=== PATIENT | male | born 1950 | race African-American/Black ===

== ENCOUNTER 2023-12-17 08:36 | Inpatient (IN) ==
[2023-12-17] MEDS: LR 1,000 ML IV 1,000 ML IV SCH (11:09)
--- NOTE | 2023-12-17 11:16 | DR.H&P ---
H&P History & Physical for Day of: H&P Date: 12/17/23 Chief Complaint Chief Complaint: Rest pain right leg, abnormal right leg CTA Allergies Allergies Allergy/AdvReac Type Severity Reaction Status Date / Time No Known Drug Allergies Allergy Unknown Verified 05/16/22 14:00 History of Present Illness History of Present Illness: 73 year old male who had presented with rest pain of the right leg. History of Eliquis use for presumed DVT and doppler studies showed monophasic flow on the right leg. CT angiogram shows minimal disease of the left leg with a right popliteal artety long segment occlusion and 3 vessel runoff. Patient with significant rest pain and will be admitted for therapeutic Lovenox and arterial intervention right leg . Past Medical History Past Medical History: COPD, Dyslipidemia and Hypertension Additional Medical History: BPH Past Surgical History Surgical History: Other (wrist surgery, colonoscopy) Family History Family Medical History: Diabetes Mellitus and Hypertension Social History Does patient currently use any type of tobacco product: Yes Have you used tobacco products in the last 12 months: Yes Type of Tobacco Use: Cigarettes How many years tobacco product used: 60 Packs per day or dips/chews per day: 1 pack/day Medications Home Medications: Home Medications Medication Instructions Recorded Confirmed Type apixaban 5 mg tablet (Eliquis) 5 mg PO BID 12/17/23 12/17/23 History atenolol 50 mg-chlorthalidone 25 1 tab PO QDAY 12/17/23 12/17/23 History mg tablet fenofibrate 160 mg tablet 160 mg PO QDAY 12/17/23 12/17/23 History hydrochlorothiazide 25 mg tablet 25 mg PO DAILY 12/17/23 12/17/23 History tamsulosin 0.4 mg capsule 0.4 mg PO QDAY 12/17/23 12/17/23 History Review of Systems Constitutional: See HPI Eyes: No Symptoms Reported ENT: No Symptoms Reported Respiratory: No Symptoms Reported Cardiovascular: No Symptoms Reported Gastrointestinal: No Symptoms Reported Genitourinary: No Symptoms Reported Musculoskeletal: No Symptoms Reported Skin: No Symptoms Reported Neurological: No Symptoms Reported Oriented: Normal, Time, Person and Place Eyes: Normal Ear: Normal Nose: Normal Throat: Normal Respiratory: Clear Throughout Cardiovascular: Normal and Other (Femoral pulses palpable b/l . absent palpable pulses both ankles ) : Other (On Flomax, and no current difficulty urinating ) Auscultation: Bowel Sounds: Normal Palpation: Normal Tenderness: Normal Skin: Normal Musculoskeletal: Normal Psychiatric: Normal Mood Description: Calm Affect: Normal Speech Pattern: Clear and Appropriate Assessment/Plan (1) Atherosclerosis of [place] arteries of extremities with rest pain, right leg: Status: Acute Plan: admit, therapeutic Lovenox plan our arterial invention right leg tomorrow due to severe rest pain (2) Benign prostatic hyperplasia: Status: None Plan: po Flomax (3) Chronic obstructive pulmonary disease: Status: None Plan: home medications (4) Hyperlipidemia: Status: None Plan: home medications (5) Hypertension: Status: None Plan: home medications
[2023-12-17 11:28] LABS: BASOPHILS # (AUTO) 0.1 X10^3/uL (0.0-0.1); BASOPHILS % (AUTO) 0.8 % (0.2-1.0); EOSINOPHILS # (AUTO) 0.4 x10^3/uL (0.0-0.2); EOSINOPHILS % (AUTO) 4.5 % (0.9-2.9); HEMATOCRIT 40.6 % (42.0-54.0); HEMOGLOBIN 13.8 g/dL (13.5-18.0); MEAN CORPUSCULAR HEMOGLOBIN 32.6 pg (27.0-34.0); MEAN CORPUSCULAR HGB CONC 34.1 g/dL (33.0-35.0); MEAN CORPUSCULAR VOLUME 95.6 fL (80.0-100.0); MEAN PLATELET VOLUME 8.9 fL (7.4-11.0); MONOCYTES # (AUTO) 0.8 x10^3/uL (0.3-0.8); MONOCYTES % (AUTO) 9.9 % (0.0-13.0); NEUTROPHILS # (AUTO) 5.3 x10^3/uL (2.2-4.8); NEUTROPHILS % (AUTO) 61.8 % (42.0-75.0); PLATELET COUNT 145 X10^3/uL (150.0-450.0); RED BLOOD COUNT 4.24 X10^6/uL (4.7-6.0); RED CELL DISTRIBUTION WIDTH 15.3 % (11.6-16.5); WHITE BLOOD COUNT 8.5 X10^3/uL (3.6-10.0)
[2023-12-17 11:48] LABS: ALANINE AMINOTRANSFERASE 27 Units/L (12-78); ALBUMIN 3.2 g/dL (3.4-5.0); ALKALINE PHOSPHATASE 51 Units/L (46-116); ASPARTATE AMINO TRANSFERASE 21 Units/L (15-37); BLOOD UREA NITROGEN 20 mg/dL (7-18); CALCIUM 8.8 mg/dL (8.5-10.1); CARBON DIOXIDE 25.8 mmol/L (21-32); CHLORIDE 106 mmol/L (98-107); COR CA(FOR HYPOALB) 9.4 mg/dL (8.5-10.1); CREATININE 1.28 mg/dL (0.70-1.30); GLUCOSE 104 mg/dL (65-99); POTASSIUM 4.2 mmol/L (3.5-5.1); SODIUM 141 mmol/L (136-145); TOTAL PROTEIN 7.6 g/dL (6.4-8.2); eGFR NON BLACK RACES 58 (>60)
[2023-12-17] MEDS: CRESTOR TAB 10 MG PO SCH (21:06)
[2023-12-17] MEDS: LOVENOX INJ 80 MG SYR SC SCH (21:12)
[2023-12-17] MEDS ORDERED: HIBICLENS WASH ONE (22:24)
[2023-12-18] MEDS: HIBICLENS WASH EXT ONE (04:53)
[2023-12-18] MEDS: TENORMIN PO SCH (09:20)
[2023-12-18] MEDS: CHLORTHALIDONE PO SCH (09:20)
[2023-12-18] MEDS: HYDROCHLOROTHIAZIDE 25 MG TAB PO SCH (09:20)
[2023-12-18] MEDS: TRICOR TAB 160 MG PO SCH (09:25)
[2023-12-18] MEDS: FLOMAX PO SCH (09:25)
--- NOTE | 2023-12-18 10:07 | EKG ---
Test Reason : Pre-op Blood Pressure : */* mmHG Vent. Rate : 68 BPM Atrial Rate : 68 BPM P-R Int : 194 ms QRS Dur : 90 ms QT Int : 392 ms P-R-T Axes : 60 32 33 degrees QTc Int : 416 ms Normal sinus rhythm Normal ECG No previous ECGs available Confirmed by Bossman Rodriguez MD ([id number]) on 12/18/2023 1:16:53 PM Referred By: Confirmed By: Bossman Rodriguez MD
--- NOTE | 2023-12-18 10:32 | RAD ---
EXAM: CHEST, 1 VIEW HISTORY: PRE OP VASCULAR PROCEDURE; COMPARISON: None. TECHNIQUE: Chest x-ray single view FINDINGS: Heart size and mediastinal contours are normal. Lungs are clear as are the pleural spaces. No free ai r or pneumothorax. No acute bony abnormality. Multilevel bridging osteophytes of the spine are typical of diffuse idiopathic skeletal hyperostosis. IMPRESSION: No acute radiographic abnormalities of the chest THIS IS AN ELECTRONICALLY VERIFIED FINAL REPORT 12/18/2023 10:17 AM - Electronically signed by Jovan Curry MD
[2023-12-18] MEDS: LR 1,000 ML IV 1,000 ML IV ONE (12:33)
[2023-12-18] MEDS: NS 100 ML IV 100 ML ONE (13:01)
[2023-12-18] MEDS: ANCEF VIAL 1 GRAM ONE (13:01)
[2023-12-18] MEDS: DIPRIVAN VIAL 20 ML ONE ×3 (13:14→15:42)
[2023-12-18] MEDS: FENTANYL VIAL INJ 100 mcg ONE (13:14)
[2023-12-18] MEDS: VERSED ONE (13:14)
[2023-12-18] MEDS: ZOFRAN INJ 4 MG VIAL ONE (13:28)
[2023-12-18] MEDS: HEPARIN SODIUM IN D5W 75,000 UNITS/1,500 ML BAG ONE (13:31)
[2023-12-18] MEDS: MARCAINE 0.5% ONE (13:31)
[2023-12-18] MEDS: VISIPAQUE 50 ML ONE (13:31)
[2023-12-18] MEDS: VISIPAQUE 100 ML ONE (13:31)
[2023-12-18] MEDS: HEPARIN SODIUM INJ 5000 UNITS ONE (13:32)
[2023-12-18] MEDS: PROTAMINE SULFATE 50 MG VIAL ONE (13:48)
[2023-12-18] MEDS: NS 500 ML IV 500 ML IV ONE (15:12)
--- NOTE | 2023-12-18 16:13 | OR.IMMED ---
IMMEDIATE POST-OP NOTE Immediate Post-Op Note Date of surgery/procedure: 12/18/23 Pre-Op Diagnosis: critical ischemia right leg Post-Op Diagnosis: same Procedure: aortogram , arteriogram right leg, athertectomy and drug stenting of the right popliteal artery and right tibial peroneal trunk , Ivus right popliteal , tib peroneal trunk and posterior tibial arteries Description of Procedure: dictated Surgeon/Stenotypist: Sarabjit Findings: completely occluded right popliteal artery at the knee joint, severe stenosis right tibial peroneal trunk, only runoff to the right foot is the posterior tibial artery. Estimated Blood Loss: 200 cc Complications: none Progress Notes: return to floor, stop Lovenox and begin po Xarelto and aspirin , d/c home tomorrow
[2023-12-18] MEDS: XARELTO PO SCH (20:05)
[2023-12-18] MEDS: PERCOCET TAB 5/325 MG PO PRN (20:06)
--- NOTE | 2023-12-19 11:00 | W.DIS.FURT ---
Summary of Discharge Discharge Summary of Date Date of Exam: 12/19/23 Admission Date Date of Admission: 12/17/23 Admission Diagnosis Hospital Course: This is a 73 year old male with presented with rest pain at the right leg with monophasic waveforms and CT Angiogram showing complete occlusion of the right popliteal artery. He was admitted on December and was placed on subcutaneous therapeutic Lovenox .The following day ,December 17 he underwent aortogram and arteriogram of the the right leg showing completed occlusion of the distal right popliteal artery with severe disease of the tibial peroneal trunk and the proximal right posterior tibial artery The right anterior tibial artery is occluded distally . Posterior tibial artery was really the only vessel going to the foot. He underwent atherectomy and stenting of the tibial peroneal trunk through the popliteal artery with a drug coated stent . He has done well. He will be discharged home at this time on his usual medications plus aspirin 81 milligrams daily and Eliquis 5 mg PO BID. He will follow up with me in 1 week. Vital Signs: Vital Signs (72 hours) 12/17/23 11:14 12/17/23 10:57 12/17/23 12:00 Temperature 97.3 F L 97.2 F L Pulse Rate Pulse Rate [Brachial] 65 69 Respiratory Rate 18 17 Blood Pressure Blood Pressure [Left Arm] 119/56 Blood Pressure [Right Arm] 115/55 O2 Sat by Pulse Oximetry 96 97 Oxygen Delivery Method Room Air Room Air Room Air 12/17/23 16:00 12/17/23 19:28 12/17/23 19:00 Temperature 97.9 F 98.1 F Pulse Rate Pulse Rate [Brachial] 83 77 Respiratory Rate 18 20 Blood Pressure Blood Pressure [Left Arm] Blood Pressure [Right Arm] 138/65 119/56 O2 Sat by Pulse Oximetry 97 96 Oxygen Delivery Method Room Air Room Air Room Air 12/17/23 23:41 12/18/23 03:59 12/18/23 09:23 Temperature 98.2 F 98.0 F Pulse Rate Pulse Rate [Brachial] 79 82 Respiratory Rate 20 20 Blood Pressure Blood Pressure [Left Arm] Blood Pressure [Right Arm] 138/63 123/56 O2 Sat by Pulse Oximetry 98 96 Oxygen Delivery Method Room Air Room Air Room Air 12/18/23 08:00 12/18/23 12:35 12/18/23 16:05 Temperature 98.1 F 97.8 F Pulse Rate 65 Pulse Rate [Brachial] 80 64 Respiratory Rate 18 20 18 Blood Pressure 122/55 Blood Pressure [Left Arm] Blood Pressure [Right Arm] 111/58 123/55 O2 Sat by Pulse Oximetry 96 97 96 Oxygen Delivery Method Room Air Room Air 12/18/23 16:20 12/18/23 16:35 12/18/23 16:50 Temperature 97.8 F 97.9 F 97.8 F Pulse Rate Pulse Rate [Brachial] 64 59 L 56 L Respiratory Rate 16 16 16 Blood Pressure Blood Pressure [Left Arm] Blood Pressure [Right Arm] 123/59 115/59 98/50 O2 Sat by Pulse Oximetry 99 100 98 Oxygen Delivery Method 12/18/23 17:05 12/18/23 18:05 12/18/23 19:53 Temperature 97.8 F 97.5 F L 98.1 F Pulse Rate Pulse Rate [Brachial] 53 L 67 75 Respiratory Rate 17 18 19 Blood Pressure Blood Pressure [Left Arm] Blood Pressure [Right Arm] 115/58 122/61 116/63 O2 Sat by Pulse Oximetry 99 99 98 Oxygen Delivery Method Room Air 12/18/23 20:06 12/18/23 19:00 12/18/23 21:06 Temperature Pulse Rate Pulse Rate [Brachial] Respiratory Rate 18 18 Blood Pressure Blood Pressure [Left Arm] Blood Pressure [Right Arm] O2 Sat by Pulse Oximetry Oxygen Delivery Method Room Air 12/18/23 19:05 12/18/23 20:05 12/18/23 21:05 Temperature 98.1 F 98.1 F 98.2 F Pulse Rate Pulse Rate [Brachial] 68 71 69 Respiratory Rate 18 18 18 Blood Pressure Blood Pressure [Left Arm] Blood Pressure [Right Arm] 116/55 116/63 132/65 O2 Sat by Pulse Oximetry 100 99 99 Oxygen Delivery Method Room Air 12/18/23 23:55 12/19/23 04:00 12/19/23 07:00 Temperature 97.6 F 97.8 F Pulse Rate Pulse Rate [Brachial] 63 75 Respiratory Rate 20 20 Blood Pressure Blood Pressure [Left Arm] Blood Pressure [Right Arm] 98/50 131/60 O2 Sat by Pulse Oximetry 99 100 Oxygen Delivery Method Room Air Room Air Room Air 12/19/23 08:00 Temperature 98.9 F Pulse Rate Pulse Rate [Brachial] 85 Respiratory Rate 20 Blood Pressure Blood Pressure [Left Arm] Blood Pressure [Right Arm] 128/59 O2 Sat by Pulse Oximetry 97 Oxygen Delivery Method Room Air Labs: Laboratory Last Values WBC 8.5 X10^3/uL (3.6-10.0) 12/17/23 11:18 RBC 4.24 X10^6/uL (4.7-6.0) L 12/17/23 11:18 Hgb 13.8 g/dL (13.5-18.0) 12/17/23 11:18 Hct 40.6 % (42.0-54.0) L 12/17/23 11:18 MCV 95.6 fL (80.0-100.0) 12/17/23 11:18 MCH 32.6 pg (27.0-34.0) 12/17/23 11:18 MCHC 34.1 g/dL (33.0-35.0) 12/17/23 11:18 RDW 15.3 % (11.6-16.5) 12/17/23 11:18 Plt Count 145 X10^3/uL (150.0-450.0) L 12/17/23 11:18 MPV 8.9 fL (7.4-11.0) 12/17/23 11:18 Neut % (Auto) 61.8 % (42.0-75.0) 12/17/23 11:18 Lymph % (Auto) 23.0 % (21.0-51.0) 12/17/23 11:18 [place] % (Auto) 9.9 % (0.0-13.0) 12/17/23 11:18 Eos % (Auto) 4.5 % (0.9-2.9) H 12/17/23 11:18 Baso % (Auto) 0.8 % (0.2-1.0) 12/17/23 11:18 Neut # (Auto) 5.3 x10^3/uL (2.2-4.8) H 12/17/23 11:18 Lymph # (Auto) 2.0 X10^3/uL (1.3-2.9) 12/17/23 11:18 [place] # (Auto) 0.8 x10^3/uL (0.3-0.8) 12/17/23 11:18 Eos # (Auto) 0.4 x10^3/uL (0.0-0.2) H 12/17/23 11:18 Baso # (Auto) 0.1 X10^3/uL (0.0-0.1) 12/17/23 11:18 Absolute Nucleated RBC 0.0 /100WBC 12/17/23 11:18 Sodium 141 mmol/L (136-145) 12/17/23 11:18 Corrected Sodium TNP 12/17/23 11:18 Potassium 4.2 mmol/L (3.5-5.1) 12/17/23 11:18 Chloride 106 mmol/L (98-107) 12/17/23 11:18 Carbon Dioxide 25.8 mmol/L (21-32) 12/17/23 11:18 BUN 20 mg/dL (7-18) H 12/17/23 11:18 Creatinine 1.28 mg/dL (0.70-1.30) 12/17/23 11:18 Est GFR (MDRD) Af Amer > 60 (>60) 12/17/23 11:18 Est GFR (MDRD) Non-Af 58 (>60) L 12/17/23 11:18 Glucose 104 mg/dL (65-99) H 12/17/23 11:18 Calcium 8.8 mg/dL (8.5-10.1) 12/17/23 11:18 Corrected Calcium 9.4 mg/dL (8.5-10.1) 12/17/23 11:18 Total Bilirubin 0.30 mg/dL (0.2-1.0) 12/17/23 11:18 AST 21 Units/L (15-37) 12/17/23 11:18 ALT 27 Units/L (12-78) 12/17/23 11:18 Alkaline Phosphatase 51 Units/L (46-116) 12/17/23 11:18 Total Protein 7.6 g/dL (6.4-8.2) 12/17/23 11:18 Albumin 3.2 g/dL (3.4-5.0) L 12/17/23 11:18 Globulin 4.4 g/dL (2.5-4.5) 12/17/23 11:18 Albumin/Globulin Ratio 0.7 Ratio (1.1-2.1) L 12/17/23 11:18 Reason For Visit: CRITICAL ISCHEMIA RIGHT LEG Discharge Date Discharge Date: 12/19/23 Discharge Diagnosis All Active Problems (Updated 12/17/23 @ 11:14 by Ron Whipple) Atherosclerosis of [place] arteries of extremities with rest pain, right leg (Acute) Plan of Treatment: Continue with present treatment and follow up plan. Pt is to keep follow up appointment as instructed and take medications as ordered. Discharge Medications Discharge Medications: No Known Drug Allergies Allergy (Unknown, Verified 05/16/22 14:00) CONTINUE taking the following medications apixaban 5 mg tablet (Eliquis) 5 mg PO BID 12/17/23 [History] atenolol 50 mg-chlorthalidone 25 mg tablet 1 tab PO QDAY 12/17/23 [History] fenofibrate 160 mg tablet 160 mg PO QDAY 12/17/23 [History] hydrochlorothiazide 25 mg tablet 25 mg PO DAILY 12/17/23 [History] tamsulosin 0.4 mg capsule 0.4 mg PO QDAY 12/17/23 [History] Discharge Disposition Assessment: see hospital course Discharge Plan Discharge Plan Hospital Course: This is a 73 year old male with presented with rest pain at the right leg with monophasic waveforms and CT Angiogram showing complete occlusion of the right popliteal artery. He was admitted on December the and was placed on subcutaneous therapeutic Lovenox .The following day ,December 17 he underwent aortogram and arteriogram of the the right leg showing completed occlusion of the distal right popliteal artery with severe disease of the tibial peroneal trunk and the proximal right posterior tibial artery The right anterior tibial artery is occluded distally . Posterior tibial artery was really the only vessel going to the foot. He underwent atherectomy and stenting of the tibial peroneal trunk through the popliteal artery with a drug coated stent . He has done well. He will be discharged home at this time on his usual medications plus aspirin 81 milligrams daily and Eliquis 5 mg PO BID. He will follow up with me in 1 week. Patient Disposition: HOME, SELF-CARE Condition: Stable Health Concerns: Post Hospitalization: new medications and changes needed to prevent readmission or further decline. Pt educated and given instructions on all concerns. Plan of Treatment: Continue with present treatment and follow up plan. Pt is to keep follow up appointment as instructed and take medications as ordered. Assessment: see hospital course Prescription drug monitoring program results: PDMP reviewed and no concerns identified Prescriptions: New aspirin 81 mg tablet,chewable 81 mg PO QDAY Qty: 120 0RF Continued atorvastatin 20 mg tablet 20 mg PO QDAY Qty: 30 2RF atenolol-chlorthalidone 50-25 mg tablet 1 tab PO QDAY tamsulosin 0.4 mg capsule 0.4 mg PO QDAY fenofibrate 160 mg tablet 160 mg PO QDAY Eliquis 5 mg tablet 5 mg PO BID hydrochlorothiazide 25 mg tablet 25 mg PO DAILY Follow ups/Referrals Follow ups/Referrals: Ron Whipple [Primary Care Provider] - 1 WEEK Instructions Instructions: Endovascular Therapy for Peripheral Vascular Disease, Care After Stand Alone Forms: Excuse From Work or School, Post Hospital Follow Up Care
[2023-12-19 12:03] VITALS: BP 131/65; PULSE 81; RESP 18; TEMP 97.5; O2SAT 99
[2023-12-19] MEDS ORDERED: KETAMINE HCL ONE (13:14)
--- NOTE | 2023-12-23 23:45 | DR.OPNOTE ---
OP NOTE Pre-Op Diagnosis: critical ischemia right leg Post-Op Diagnosis: same Procedure Date Date Of Procedure: 12/18/23 Procedure: PROCEDURE: DIAGNOSTIC AORTOGRAM, DIAGNOSTIC ARTERIOGRAM RIGHT LEG , IVUS ARTERIES RIGHT LEG, ATHERECTOMY AND BALLOON ANGIOPLASTY RIGHT POSTERIOR TIBIAL ARTERY, ATHERECTOMY AND DRUG COATED BALLOON ANGIOPLASTY RIGHT TIBIAL PERONEAL TRUNK, ATHERECTOMY AND DRUG COATED STENT PLACEMENT RIGHT POPLITEAL ARTERY. NARRATIVE : The patient was taken to the operative suite and placed in the supine position. The left groin and entire right leg were prepped and draped in sterile fashion. The patient was given intravenous sedation supervised by myself. Time out for the procedure obtained. Ultrasound used to identify the left femoral artery and the skin overlying it infiltrated with 0.5% Marcaine. Ultrasound then used to guide puncture of the left femoral artery and a 0.012 inch guide wire was placed. Incision made over the guide wire at the skin edge with a # 11 knife blade and a micro sheath placed over the guide wire into the left femoral artery The small guidewire exchanged for a 0.035 inch Advantage glide wire and the micro sheath exchanged for a 5 Fr vascular sheath. Patient given 5000 units of intravenous heparin. Omni catheter was placed over the guide wire into the aorta and diagnostic aortogram carried out with the power injector showing patent aorta and iliac arteries. Omni catheter was used to steer the guide wire down the right common iliac artery to the distal right external iliac artery . Omni catheter was exchanged for a [place] catheter and sequential arteriograms carried out of the right lower extremity showing complete occlusion of the distal right popliteal artery, possible disease of the right tibial peroneal trunk, and the right posterior tibial artery was the only runoff to the right foot. The 5 Fr sheath in the left groin then exchanged for a 7 Fr destination sheath which was parked in the proximal right popliteal artery. [place] catheter and the guide wire were used to traverse the arteries of the right leg ultimately ending in the right posterior tibial artery . This was selective catheterization. 0.035 inch wire removed and exchanged for a 0.014 inch wire. Over this wire we placed the Jet Stream atherectomy device and performed atherectomy of the proximal right posterior tibial artery, disease of the right tibial peroneal trunk and the right popliteal artery. At this point we performed angioplasty of the right posterior tibial artery with Constantia 3mmx 150 mm. The right tibial peroneal trunk was dialted with a [employer] 4mm x 80 mm ballooon . Intravascular ultrasound performed of the right popliteal artery and the right tibial peroneal trunk. We then placed an Sandra 5mmx 150 mm drug coated stent over the right popliteal artery and right tibial peroneal trunk. The portion of the stent in the tibial peroneal trunk dilated a 4mmx 80 mm balloon and the proximal portion also dilated with a 5mmx 60mm balloon. Post procedure arteriogram and IVUS both showed excvellent results . All wires and devices removed. The 7 Fr sheath was pulled back into the aorta and a 0.035 inch wire placed. The Catapult sheath exchanged for an Angioseal device used to close the puncture of the left femoral artery.Dressing applied to the left groin. The patient taken to same day surgery in good condition. Type of Anesthesia: Local (0.5% Marcaine ) Findings: severe disease right proximal posterior tibial artery, devere diease right tibial peroneal trunk, complete occlusion right popliteal artery Type of Fluids Used:: Lactated Ringers Total Amount of Fluid Infused:: 900 cc Urine output: 700cc EBL: 200 cc Hardware: Sandra 6mmx 150 mm drug coated stent Complications:: none Needle/Sponge Count:: correct Disposition/Condition: Pt. tolerated procedure without difficulty. Taken to [facility] in stable condition.
--- NOTE | 2023-12-24 00:23 | DR.OPNOTE ---
OP NOTE Pre-Op Diagnosis: critical ischemia left leg Post-Op Diagnosis: same Procedure Date Date Of Procedure: 12/23/23 Procedure: PROCEDURE: DIAGNOSTIC AORTOGRAM, DIAGNOSTIC ARTERIOGRAM LEFT LEG, ATHERECTOMY AND BALLOON ANGIOPLASTY LEFT ANTERIOR TIBIAL ARTERY,ATHERECTOMY AND BALLOON ANGIOPLASTY LEFT POSTERIOR TIBIAL ARTERY, INTRAVASCULAR ULTRASOUND OF THE DISTAL LEFT SUPERFICIAL FEMORAL ARTERY NARRATIVE : The patient was taken to the operative suite and placed in the supine position. The right groin and entire left leg were prepped and draped in sterile fashion. The patient was given intravenous sedation supervised by myself. Time out for the procedure obtained. Ultrasound used to identify the right femoral artery and the skin overlying it infiltrated with 0.5% Marcaine. Ultrasound then used to guide puncture of the right femoral artery and a 0.012 inch guide wire was placed. Incision made over the guide wire at the skin edge with a # 11 knife blade and a micro sheath placed over the guide wire into the right femoral artery The small guidewire exchanged for a 0.035 inch Advantage glide wire and the micro sheath exchanged for a 5 Fr vascular sheath. Patient given 5000 units of intravenous heparin. Omni catheter was placed over the guide wire into the aorta and diagnostic aortogram carried out with the power injector showing patent aorta and iliac arteries . Omni catheter was used to steer the guide wire down the left common iliac artery to the distal left external iliac artery . Omni catheter was exchanged for a [place] catheter and sequential arteriograms carried out of the left lower extremity showing question of significant stenosis of the distal left superficial femoral artery, proximal occlusion of both the left posterior tibial and anterior tibial arteries . The 5 Fr sheath in the right groin then exchanged for a 7 Fr Catapult sheath which was parked in the mid left superficial femoral artery. [place] catheter and the guide wire were used to traverse the arteries of the left leg ultimately ending in the left anterio tibial artery all the way to the foot . This was selective catheterization. 0.035 inch wire removed and exchanged for a 0.014 inch wire. Over this wire we placed the Jet Stream atherectomy device and performed atherectomy of the proximal left anterior tibial artert . At this point we performed balloon dilatation of of the entire left anterior tibial artery with a Keller 2.5x 220 mm angioplasty balloon. The 0.014 inch wire the placed down the left posterior tibial artery all the way to the foot. This was selective catherization.Atherectomy performed of the proximal left posterior tibial artery and the posterior tibial artery balloon dilated along it's entire length with a 2.5mmx 220 mm Keller balloon. At the completion of this a follow up arteriogram showed excellent result . Over the 0.014 inch we placed the Opticross ultrasound probe and there was only 50 % stenosis of the distal left superficial femoral artery . All wires and devices removed. The 7 Fr sheath was pulled back into the aorta and a 0.035 inch wire placed. The destination sheath exchanged for an Angioseal device used to close the puncture of the right femoral artery. .Dressing applied to the left groin. The patient taken to Same Day Surgery in good condition. Type of Anesthesia: Local (0.5% Marcaine ) Anesthesia Comment: plus MAC Findings: severe disease and occlusion left anterior tibial artery, Severe disease and occlusion left posterior tibial artery, question of disease of significance of the distal left superficial femoral artery Type of Fluids Used:: Lactated Ringers Total Amount of Fluid Infused:: 600cc Urine output: 200 cc EBL: 100 cc Complications:: none Needle/Sponge Count:: correct Disposition/Condition: Pt. tolerated procedure without difficulty. Taken to [facility] in stable condition.
== END 2023-12-19 15:45 | disposition home or self-care (01) | DRG 272 ==
LOC: MED/SURG 09:50
PROVIDERS: ADMIT Surgery; ATTEND Surgery
DX: N40.0 Benign prostatic hyperplasia without lower urinary tract symptoms; Z79.01 Long term (current) use of anticoagulants; E78.5 Hyperlipidemia, unspecified; I70.221 Atherosclerosis of native arteries of extremities with rest pain, right leg; Z72.0 Tobacco use; I10 Essential (primary) hypertension; J44.9 Chronic obstructive pulmonary disease, unspecified; Z01.810 Encounter for preprocedural cardiovascular examination